=== PATIENT | male | born 1990 | race Caucasian/White ===

== ENCOUNTER 2017-08-23 15:57 | Emergency (ER) | payer BC ==
[~2017-08-23] VITALS: Ht 167.6 cm; Wt 122.7 kg
[2017-08-23 16:06] VITALS: BP 141/68; TEMP 98.8
[2017-08-23 18:02] VITALS: PULSE 94
== END 2017-08-23 18:02 | disposition home or self-care (01) ==
LOC: COL.ER 15:57
DX: R60.9 Edema, unspecified (principal); M79.662 Pain in left lower leg